=== PATIENT | female | born 1940 | race Two or more races ===

== ENCOUNTER 2018-01-29 08:31 | Day surgery (SDC) | payer OTHER ==
[~2018-01-29 08:31] MED LIST: DICLOFENAC SODI50 MG PO; FENOFIBRATE160 MG PO; LEVO-T100 MCG PO; SIMVASTATIN40 MG PO
[2018-01-29] MEDS ORDERED: PERCOCET 5-3251 EACH PO (18:06)
[2018-01-29] MEDS ORDERED: NABUMETONE500 MG PO (18:07)
[2018-01-29] MEDS ORDERED: CIPROFLOXACIN750 MG PO (18:08)
== END 2018-01-29 17:20 | disposition home or self-care (01) ==
LOC: CIR.AMB 08:31
DX: M60.231 Foreign body granuloma of soft tissue, not elsewhere classified, right forearm (principal)

== ENCOUNTER 2019-03-04 10:52 | Outpatient (CLI) | payer OTHER ==
[~2019-03-04 10:52] MED LIST changes: +CIPROFLOXACIN750 MG PO; +NABUMETONE500 MG PO; +PERCOCET 5-3251 EACH PO
== END 2019-03-04 11:08 | disposition home or self-care (01) ==
LOC: NUCLEAR 10:52
DX: M81.0 Age-related osteoporosis without current pathological fracture (principal)

== ENCOUNTER 2019-04-25 07:39 | Outpatient (CLI) | payer OTHER | END 2019-04-25 07:41 | disposition home or self-care (01) | LOC: RAD 07:39 | DX: M25.521 Pain in right elbow (principal) ==

== ENCOUNTER 2019-05-30 09:18 | Outpatient (CLI) | payer OTHER | END 2019-05-30 09:21 | disposition home or self-care (01) | LOC: SONOGRAMA 09:18 → MAMO-SONO 10:15 | DX: M25.521 Pain in right elbow (principal) ==

== ENCOUNTER 2020-11-03 08:36 | Outpatient (CLI) | payer OTHER | END 2020-11-03 08:43 | disposition home or self-care (01) | LOC: RAD 08:36 | PROVIDERS: ATTEND Ophthalmology | DX: H25.11 Age-related nuclear cataract, right eye (principal); Z01.810 Encounter for preprocedural cardiovascular examination ==

== ENCOUNTER 2021-08-26 08:41 | Outpatient (CLI) | payer OTHER | END 2021-08-26 12:00 | disposition home or self-care (01) | LOC: RAD 08:41 | PROVIDERS: ATTEND Internal Medicine Rheumatology | DX: M17.0 Bilateral primary osteoarthritis of knee (principal); E07.9 Disorder of thyroid, unspecified ==

== ENCOUNTER 2022-04-17 09:26 | Outpatient (CLI) | payer OTHER | END 2022-04-17 09:32 | disposition home or self-care (01) | LOC: MAMO-SONO 09:26 | PROVIDERS: ATTEND Obstetrics & Gynecology | DX: Z12.31 Encounter for screening mammogram for malignant neoplasm of breast (principal); N60.19 Diffuse cystic mastopathy of unspecified breast ==

== ENCOUNTER 2022-10-04 08:46 | Outpatient (CLI) | payer OTHER | END 2022-10-04 08:53 | disposition home or self-care (01) | LOC: RAD 08:46 | PROVIDERS: ATTEND Internal Medicine Rheumatology | DX: M17.0 Bilateral primary osteoarthritis of knee (principal) ==

== ENCOUNTER 2022-11-06 11:47 | Outpatient (CLI) | payer OTHER | END 2022-11-06 11:53 | disposition home or self-care (01) | LOC: RAD 11:47 | DX: M54.2 Cervicalgia (principal); M25.562 Pain in left knee; M25.561 Pain in right knee ==

== ENCOUNTER 2023-10-11 07:44 | Outpatient (CLI) | payer OTHER | END 2023-10-11 07:53 | disposition home or self-care (01) | LOC: TOM 07:44 | DX: G44.029 Chronic cluster headache, not intractable (principal) ==

== ENCOUNTER 2025-01-13 07:22 | Outpatient (CLI) | payer OTHER | END 2025-01-13 07:24 | disposition home or self-care (01) | LOC: RAD 07:22 | DX: M54.2 Cervicalgia (principal) ==